=== PATIENT | male | born 1975 | race Caucasian/White ===

== ENCOUNTER 2017-01-03 23:55 | Emergency (ER) | payer OTHER ==
--- NOTE | 2017-01-04 00:17 | ED Physician Chart ---
Chief Complaint/HPI - Patient Information Date Seen:: 01/04/17 Time Seen:: 00:12 Chief Complaint:: fall / injury History of Present Illness:: pt says he was working on the roof of the school nearby when he was going to climb down and fell and landed on his left side. no loc. says he didnt hit head and landed on grass. he has pain down left side of body and tingly in 4/5th fingers of l hand. pain at shldr and elbow. no n/v/d. he says he tried salon pas and motrin w no relief. he says the injury happened at 6pm and he went home after and tried to deal w it. he is here alone and says his boss dropped him off and his will be picking him up (shes a nurse). Allergies:: Allergies Allergy/AdvReac Type Severity Reaction Status Date / Time No Known Allergies Allergy Verified 01/04/17 00:02 Vitals:: Vital Signs - 8 hr 01/03/17 23:55 Temp 97.9 F HR 76 RR 18 BP 136/78 O2 Sat % 100 Historian:: Patient Review of Systems - Review of Systems General/Constitutional: No fever, No chills, No weight loss, No weakness, No diaphoresis, No edema, No loss of appetite Skin: No skin lesions, No rash, No bruising Head: No headache, No light-headedness Eyes: No loss of vision, No pain, No diplopia ENT: No earache, No nasal drainage, No sore throat, No tinnitus Neck: Neck pain, No neck pain, No swelling, No thyromegaly, No stiffness, No mass noted Cardio Vascular: No chest pain, No palpitations, No PND, No orthopnea, No edema Pulmonary: No SOB, No cough, No sputum, No wheezing GI: No nausea, No vomiting, No diarrhea, No pain, No melena, No hematochezia, No constipation, No hematemesis G/U: No dysuria, No frequency, No hematuria Musculoskeletal: No bone or joint pain, No back pain, No muscle pain Endocrine: No polyuria, No polydipsia Psychiatric: No prior psych history, No depression, No anxiety, No suicidal ideation Hematopoietic: No bruising, No lymphadenopathy Allergic/Immuno: No urticaria, No angioedema Neurological: No syncope, No focal symptoms, No weakness, No paresthesia, No headache, No seizure, No dizziness, No confusion, No vertigo Past Medical History - Past Medical History Past Medical History: Dyslipidemia, Other (pancreatitis hx) Social History: Employed Surgical History: other (umbilical sx at ?) Medication: Reviewed Family Medical History - Family Member Mother History Unknown: Yes Ethnicity: Non- Living Status: Still Living Hx Family Cancer: No Hx Family Coronary Artery Disease: No Hx Family Congestive Heart Failure: No Hx Family Hypertension: No Hx Family Diabetes: Yes Physical Exam - Physical Examination General/Constitutional: Awake, Well-developed, well-nourished, Alert, No distress, GCS 15, Non-toxic appearing, Ambulatory Other Gen/Cons comments:: there is no visible sign of trauma onthis pt. not a scratch is seen. pt c/o tndrness at neck and l shldr and elbow. no bruising and good rom. left side abd tndr. Head: Atraumatic Eyes: Lids, conjuctiva normal, PERRL, EOMI Skin: Nl inspection, No rash, No skin lesions, No ecchymosis, Well hydrated, No lymphadenopathy ENMT: External ears, nose nl, Nasal exam nl, Lips, teeth, gums nl Neck: Nontender, Full ROM w/o pain, No JVD, No nuchal rigidity, No bruit, No mass, No stridor Respiratory: Nl effort/Exclusion, Clear to Auscultation, No Wheeze/Rhonchi/Rales Other Respiratory comments:: tndr l side ribs. Cardio Vascular: RRR, No murmur, gallop, rubs, NL S1 S2 GI: No organomegaly, No hernia, Normal BS's, Nondistended, No mass/bruits, No McBurney tenderness Other GI comments:: tndr l side abd. : No CVA tenderness Extremities: No tenderness or effusion, Full ROM, normal strength in all extremities, No edema, Normal digits & nails Neuro/Psych: Alert/oriented, DTR's symmetric, Normal sensory exam, Normal motor strength, Judgement/insight normal, Mood normal, Normal gait, No focal deficits Misc: normal gait, Normal back, No paraspinal tenderness ED Septic Shock - . Is Septic Shock (SBP<90, OR Lactate>4 mmol\L) present?: No - <6hrs of presentation: Vital Signs: Vital Signs - 8 hr 01/03/17 23:55 Temp 97.9 F HR 76 RR 18 BP 136/78 O2 Sat % 100 Reassessment (Disposition) - Reassessment Reassessment:: xrays and ct scan were ordered. pt requested pain med...a order for pain med was given but pt was notified he must have a ride home available in order for him to receive this. He eloped from ED a short time later without requesting to speak w me prior to eloping. Reassessment Condition:: Unchanged - Diagnosis Diagnosis:: 1 stated s/p fall w l side pain 2 suspicious for drug seeking behavior 3 eloped from ED//left prior to completion of evaluation - Patient Disposition Discharge/Transfer:: Elope/AWOL Condition at Disposition:: Unchanged ED Discharge Plan - Patient Disposition Admit/Discharge/Transfer: AGAINST MEDICAL ADVICE Condition at Disposition: Stable
[2017-01-04 00:36] LABS: % BASOPHILS 0.8 % (0.0-2.0); % EOSINOPHILS 3.8 % (0.0-5.0); % LYMPHOCYTES 28.2 % (20.0-50.0); % MONOCYTES 8.6 % (2.0-10.0); % NEUTROPHILS 58.6 % (40.0-80.0); HEMATOCRIT 42.7 % (39.0-49.0); HEMOGLOBIN 14.5 gm/dL (13.2-17.3); MEAN CELL VOLUME 85.4 fl (80-99); MEAN CORPUSCULAR HGB CONC 33.9 pg (28.0-36.0); NEUTROPHILE ABSOLUTE 4.2 Th/cmm (1.8-8.0); PLATELET COUNT 244 Th/cmm (150-400); RED CELL DISTRIBUTION WIDTH 14.3 % (11.5-20.0); WHITE BLOOD COUNT 7.2 Th/cmm (4.8-10.8)
[2017-01-04 00:55] LABS: ALB/GLOB RATIO 1.8 (1.0-1.8); ALKALINE PHOSPHATASE 38 U/L (34-104); ANION GAP 9.9 (7.0-16.0); BILIRUBIN,TOTAL 0.4 mg/dL (0.3-1.0); BUN - UREA NITROGEN 15 mg/dL (7-25); BUN/CREATININE RATIO 18.8; CALCIUM SERUM 9.9 mg/dL (8.6-10.3); CARBON DIOXIDE 27.3 mEq/L (21.0-31.0); CHLORIDE 106 mEq/L (98-107); CREATININE - SERUM 0.8 mg/dL (0.7-1.3); GLUCOSE 99 mg/dL (70-105); LIPASE 10 U/L (11-82); POTASSIUM SERUM 4.2 mEq/L (3.5-5.1); SGOT 36 U/L (13-39); SGPT/ALT 23 U/L (7-52)
[2017-01-04 01:18] LABS: SODIUM SERUM 139 mEq/L (136-145)
[2017-01-04 01:34] LABS: CREATINE KINASE MB 5.5 ng/mL (0.6-6.3)
== END 2017-01-04 00:35 | disposition left against medical advice (07) ==
LOC: ER 23:55
DX: R52 Pain, unspecified (principal); M79.642 Pain in left hand; M25.512 Pain in left shoulder; E78.5 Hyperlipidemia, unspecified
CPT/HCPCS: 36415-UA; 80053-TC; 82550-TC; 82553; 83690-TC; 84484-TC; 85025-TC; 93005